=== PATIENT | male | born 2000 | race Caucasian/White ===

== ENCOUNTER 2025-09-08 09:04 | Outpatient (CLI) | payer MEDICAID ==
--- NOTE | 2025-09-08 11:07 | RADIOLOGY REPORT ---
CLINICAL INDICATION: PAIN IN LEFT KNEE TECHNIQUE: Multiplanar, multisequence MRI of the left knee was performed without contrast. Contrast: None. COMPARISON: None FINDINGS: Joint space and synovium: There is no joint effusion or synovial thickening. There is a lobular T2 hyperintense structure of the posterior medial knee measuring 1.6 x 1.5 by 1.9 cm. Bones and articular cartilage: There is no evidence of acute fracture or bone marrow edema. The alignment is normal. The articular cartilage is preserved in the patellofemoral, medial and lateral tibiofemoral compartment. Menisci: The medial meniscus is intact. The lateral meniscus is intact. Tendons and ligaments: The tendons in the posterior knee are intact. The extensor mechanism is intact. The anterior cruciate ligament is intact. The posterior cruciate ligament is intact. The medial collateral ligament and the lateral collateral ligament stabilizing complex are intact. Muscles: Mild edema noted in the soleus muscle. Other: There is fluid in the deep infrapatellar bursa. IMPRESSION: 1. Lobular T2 hyperintense structure in the posterior medial left knee measuring 1.6 x 1.5 x 1.9 cm reflecting a popliteal fossa cyst. 2. No evidence of meniscal tear or cruciate ligament injury. 3. Mild edema in the soleus muscle may reflect a low-grade calf strain. 4. Deep infrapatellar bursitis.
== END 2025-09-08 23:59 | disposition home or self-care (01) ==
LOC: MRI02 09:04
DX: M25.362 Other instability, left knee (principal); M25.562 Pain in left knee
CPT/HCPCS: 73721